=== PATIENT | female | born 1950 | race Caucasian/White ===

== ENCOUNTER 2016-12-22 08:34 | Inpatient (IN) | payer OTHER ==
[~2016-12-22] VITALS: Ht 162.6 cm; Wt 96.2 kg
--- NOTE | ~2016-12-22 | H ---
[facility] [place] [address] HISTORY AND PHYSICAL Name: ANGEL FERNANDEZ KAELA Room #: 416-P [facility] IN M.R.#: [id number] Admission: 01/29/17 Attend Phys: Best Rodgers MD Discharge: 02/01/17 Date of : 46 Report #: [id number] THIS REPORT FOR: //name// CC: Rk Rodgers CHIEF COMPLAINT: End-stage degenerative arthritis, left knee. HISTORY OF PRESENT ILLNESS: This heavy, but otherwise fit well appearing 65-year-old female presents with progressive left knee pain. She has had significant problems in both knees over the past several years, more severe on the left side than the right. We tried multiple conservative measures including anti-inflammatories and activity moderation and appropriate exercise and therapy with occasional knee injections. These have not resulted in significant symptom improvement. Her left knee remains quite symptomatic and she has elected to go ahead with left total knee arthroplasty. We have discussed this in my office on multiple occasions and she ultimately elected to go ahead with plans for hospital admission and surgery on January 29. I had at that time a history and physical in the chart, but this was actually few days longer than 30 days and so this is an updated and revised history and physical in regard to her hospital admission. We did discuss that she is slightly heavy with a BMI of 39 and would benefit from weight reduction. She notes she is making attempt with diet and exercise and has difficulty given her ongoing knee pain. PREVIOUS MEDICAL HISTORY: Notable for sleep apnea using a CPAP machine, hypertension and hypothyroidism. PREVIOUS SURGICAL HISTORY: Include carpal tunnel release, cataract surgery and previous knee arthroscopy. MEDICATIONS: Include meloxicam 7.5 mg daily, Synthroid 0.125 mg daily, aspirin 325 mg daily, fish oil 1000 mg daily, Toprol-XL once daily. MEDICAL ALLERGIES: PENICILLIN, SULFA, CIPRO. SOCIAL HISTORY: Tobacco: None. Alcohol: Minimal. FAMILY HISTORY: Noncontributory. REVIEW OF SYSTEMS: Notable for some chronic vision problems and chronic shortness of breath due to sleep apnea. The remainder of her review of systems is normal with exception of bilateral knee pain. PHYSICAL EXAMINATION: VITAL SIGNS: She is mildly heavy with height of 64 inches and weight 226 pounds. Her pulse is 86 and blood pressure 120/80. GENERAL: Her gait is antalgic on the left side, but she is not using any aids [address] [place] [address] HISTORY AND PHYSICAL Name: ANGEL FERNANDEZ [facility] Room #: 416-P [facility] IN ..#: [id number] Admission: 01/29/17 Attend Phys: Best Rodgers MD Discharge: 02/01/17 Date of : 46 Report #: [id number] or supports. SKIN: Warm and dry. LUNGS: Clear. CARDIOVASCULAR: Reveals a regular rate and rhythm without murmurs. ABDOMEN: Protuberant, soft, nontender. EXTREMITIES: The neck and back reveal normal contour and alignment, good range of motion without significant discomfort. The right lower extremity reveals good movement of the right hip without much pain. The right knee demonstrates slight varus malalignment and mild crepitus with a mild knee effusion and some discomfort consistent with degenerative change. The left lower extremity is much more uncomfortable at the knee, but demonstrates good range of motion of the hip. The left knee demonstrates slight varus malalignment and significant medial compartment crepitus and pain with varus and valgus stress. Her range of motion is limited to about 120 degrees of flexion and she lacks about degrees from full knee extension. X-rays of the left knee confirms moderate degenerative arthritis with spurring at all 3 compartments, greatest in the medial compartment related to mild varus malalignment. IMPRESSION: End-stage degenerative arthritis, left knee with mild varus malalignment. We discussed treatment options and elected to go ahead with left total knee arthroplasty. She and her understand well and appreciate the potential risks as well as benefits as we discussed previously. She will be admitted to the hospital on for left total knee arthroplasty and will probably be here for 3-4 days for postoperative rehabilitation and then discharged home for additional home therapy, then outpatient therapy as she progresses. By: [id number] Best Rodgers MD /nt
--- NOTE | ~2016-12-22 | D ---
[facility] [place] [address] DISCHARGE SUMMARY Name: ANGEL FERNANDEZ KAELA Room #: 416-P [facility] IN M.R.#: [id number] Admission: 01/29/17 Attend Phys: Best Rodgers MD Discharge: 02/01/17 Date of : 46 Report #: [id number] THIS REPORT FOR: //name// CC: Rk Rodgers DATE OF SERVICE: 02/01/2017 DATE OF ADMISSION: 01/29/2017 DATE OF DISCHARGE: 02/01/2017 FINAL DIAGNOSES: Degenerative arthritis, left knee. OPERATIONS AND PROCEDURES: Left total knee arthroplasty. HISTORY OF PRESENT ILLNESS: This heavy, but otherwise well appearing 66-year-old female presents with progressive bilateral knee pain, worse on the left side, we have elected to go ahead with total knee arthroplasty. HOSPITAL COURSE: The patient was admitted and taken to the operating room on 01/29/2017. She underwent left total knee arthroplasty which she tolerated well. Initially, her pain was well controlled with the femoral nerve block and oral pain medication. She did have some increased discomfort with time as she advanced activity and the block was decreased. She was, however, able to make good progress with therapy and seems to be safe with ambulation using a walker for protection. She was continued on her routine medications. She seems to be doing nicely on a regular diet. She has made good progress with therapy. DICTATION ENDS HERE <ELECTRONICALLY SIGNED> By: Best Rodgers MD 02/05/17 0753 0750 0811 Best Rodgers MD /nt
--- NOTE | ~2016-12-22 | EKG ---
[place] [address] [facility] [employer] [place] [address] ELECTROCARDIOGRAM REPORT Name: ANGEL FERNANDEZ Room #: PRE IN [facility]#: [id number] Admission: Attend Phys: Best Rodgers MD Discharge: Date of : 46 Report #: [id number] THIS REPORT FOR: //name// [facility] Test Date: 2017-01-10 Test Time: 12:06:00 Pat Name: ANGEL FERNANDEZ Department: Room: Gender: F [employer]: pretty jo : 1950 Requested By: Best Rodgers Order Number: [id number] MD: Favian Jordan Measurements Intervals Leander Rate: 62 P: 2 NV: 158 QRS: 44 QRSD: 94 T: 77 QT: 455 QTc: 462 Interpretive Statements Sinus rhythm Low voltage, precordial leads Nonspecific T wave abnormality Compared to ECG 12/14/1998 10:06:00 No significant change was found Electronically Signed On 01-11-2017 7:55:35 CDT by Favian Jordan [email or web address] <ELECTRONICALLY SIGNED> By: Favian Jordan MD, [facility] 01/11/17 0755 05 05 Favian Jordan MD, [facility] /EPI
--- NOTE | ~2016-12-22 | D ---
[facility] [place] [address] DISCHARGE SUMMARY Name: ANGEL FERNANDEZ KAELA Room #: 416-P [facility] IN M.R.#: [id number] Admission: 01/29/17 Attend Phys: Best Rodgers MD Discharge: 02/01/17 Date of : 46 Report #: [id number] THIS REPORT FOR: //name// CC: Rk Rodgers DATE OF SERVICE: 02/01/2017 FINAL DIAGNOSIS: End-stage degenerative arthritis, left knee. OPERATIONS AND PROCEDURES: Left total knee arthroplasty. HISTORY: This heavy, but otherwise well-appearing 66-year-old female presents with progressive bilateral knee pain, worse on the left than the right. She has tried conservative without much benefit and has therefore elected to go ahead with left total knee arthroplasty. HOSPITAL COURSE: The patient was admitted and taken to the operating room on 01/29/2017. She underwent left total knee arthroplasty which she tolerated well. Her pain was initially well controlled with oral analgesics and her femoral nerve block pain did increase somewhat as she increased activity and the nerve block was decreased. She still seems to be managing adequately with oral oxycodone and hydrocodone in an alternating fashion. She has resumed a regular diet and is tolerating that well. She is making progress with therapy and ambulating with a walker and assistance. She is otherwise feeling well. She seems to be safe and ready for discharge on 02/01/2017. DISCHARGE MEDICATIONS: Include Xarelto 10 mg daily, Lipitor 40 mg daily, metoprolol 50 mg daily, oxycodone 10/325 one half to one tablet q. 4h. p.r.n. for severe pain and hydrocodone 10/325 one half to one tablet q. 3-4 hours p.r.n. moderate pain. She will continue a regular diet at home. I have asked her to call me periodically to let me know of her progress. I have suggested continued use of elastic WESTON hose to help with lower extremity edema. She will continue with ambulation using a walker and assistance from family and visiting therapy. If she has problems or questions, I will plan to see her in my office next week. If she is doing well, we will plan to see her the following week for suture removal. <ELECTRONICALLY SIGNED> By: Best Rodgers MD 02/05/17 0753 0801 0814 Best Rodgers MD /nt
--- NOTE | ~2016-12-22 | O ---
[facility] [place] [address] OPERATIVE REPORT Name: ANGEL FERNANDEZ KAELA Room #: 416-P [facility] IN M.R.#: [id number] Admission: 01/29/17 Attend Phys: Best Rodgers MD Discharge: Date of : 46 Report #: [id number] THIS REPORT FOR: //name// CC: Rk Rodgers DATE OF SERVICE: 01/29/2017 DATE OF SERVICE: 01/29/2017. PREOPERATIVE DIAGNOSIS: End-stage degenerative arthritis, left knee. POSTOPERATIVE DIAGNOSIS: End-stage degenerative arthritis, left knee. PROCEDURE: Left total knee arthroplasty. SURGEON: Best Rodgers MD INDICATIONS: This healthy 66-year-old female presents with progressive left knee pain. Clinical evaluation and x-rays reveal moderately severe degenerative arthritis with loss of joint space and some periarticular spurring. She has tried conservative measures without much benefit. She has elected to go ahead with left total knee replacement at this time. DESCRIPTION OF PROCEDURE: The patient was taken to the operating room where she was placed under general anesthesia. A left femoral nerve block was also applied. The left leg was meticulously prepped and draped. Prophylactic intravenous antibiotics were administered. A thigh tourniquet was applied. The knee and leg were meticulously prepped and draped. An anterior longitudinal skin incision was made and carried through the medial retinaculum. The patella was reflected laterally. Moderately severe degenerative change in all 3 compartments was noted. The Coon and Nephew knee system was utilized. Intramedullary guides were used on both the femur and the tibia. The femur was cut in 5 degrees of valgus taking an additional 2 mm of bone to correct the mild preoperative flexion contracture. A size 5 left femoral component seemed to fit most appropriately. Good exposure was established at the tibia, and using an intramedullary guide, the proximal tibia was resected perpendicular to the long axis of the bone. The tibia seemed best suited for a size 4 tibial component. A patellar cutting guide was applied, and the patellar surface was resected. The patella seemed best suited for a size 32 mm patellar button. Trial components were inserted, and a trial reduction was performed testing several tibial inserts. An 11 mm insert resulted in full knee extension, but satisfactory stability and good knee flexion with also a good flexion gap and good stability and flexion. The trial component seemed to be well seated and in good position. Appropriate anchor holes were then created from both the femoral component and the tibial component. Gorham holes were also created for the [address] [address] OPERATIVE REPORT Name: ANGEL FERNANDEZ KAELA Room #: 416-P [facility] IN ..#: [id number] Admission: 01/29/17 Attend Phys: Best Rodgers MD Discharge: Date of : 46 Report #: [id number] patella. The intramedullary canal was blocked with a bone block on both the femur and the tibia. The surfaces were thoroughly irrigated and dried. Methyl methacrylate cement was mixed and injected into the porous surface of the proximal tibia. The Coon and Nephew size 4 left tibial component was then impacted into position and seated nicely and appeared to be secure. Excess cement was removed from around its margin. An 11 mm polyethylene insert was then snapped into place, seated nicely and appeared to be secure. A size 5 left noncemented press fit femoral component was then inserted. It was impacted on to the distal femur and seated nicely and appeared to be secure. A 32 mm patellar button was cemented into place using appropriate anchor holes and cement. The patella was secured with a patellar clamp until the cement had hardened. All excess cement was removed from around its margin. Once the cement was firm, alignment, range of motion and stability were once again assessed and felt to be satisfactory. The tourniquet was then deflated after a total tourniquet time of 65 minutes. A single Hemovac was left laterally through a separate stab incision. The fascia was closed with multiple #1 Vicryl sutures. The subcutaneous tissues were closed with 0 Monocryl. The skin was closed with skin akhil. A sterile dressing was applied. The patient was awakened and returned to the recovery room in good condition. <ELECTRONICALLY SIGNED> By: Best Rodgers MD 01/30/17 0759 1013 1049 Best Rodgers MD /nt
[2017-01-05] MEDS ORDERED: CYMBALTA60 MG PO (10:29)
[2017-01-05] MEDS ORDERED: AVALIDE 300-121 EACH PO (10:33)
[2017-01-05] MEDS ORDERED: LIPITOR40 MG PO (10:34)
[2017-01-05] MEDS ORDERED: PROTONIX40 M1 PO (10:34)
[2017-01-05] MEDS ORDERED: MOBIC7.5 MG PO (10:34)
[2017-01-05] MEDS ORDERED: SYNTHROID125 MCG PO (10:35)
[2017-01-05] MEDS ORDERED: TOPROL XL25 MG PO (10:35)
[2017-01-05] MEDS ORDERED: DETROL LA4 MG PO (10:36)
[2017-01-05] MEDS ORDERED: ASPIR 8181 M1 PO (10:36)
[2017-01-05] MEDS ORDERED: VITAMIN D-32000 UNIT PO (10:36)
[2017-01-05] MEDS ORDERED: ALEVE220 MG PO (10:37)
[2017-01-05] MEDS ORDERED: ESTROVEN 155 M155 MG PO (10:37)
[2017-01-10 12:14] LABS: HEMATOCRIT 39.5 % (37.0-47.0); HEMOGLOBIN 13.8 gm/dL (12.0-15.0); MCH 31.8 pg (26.0-34.0); MCHC 34.9 g/dL (28.0-37.0); MCV 91.1 fL (80.0-100.0); RBC 4.33 mil/uL (4.20-5.00); WBC 7.4 thou/uL (4.0-11.0)
[2017-01-10] MEDS ORDERED: DETROL1 MG PO (12:16)
[2017-01-10 12:22] LABS: ALBUMIN 4.2 g/dL (3.4-5.0); CALCIUM 9.6 mg/dL (8.5-10.1); POTASSIUM 4.2 mmol/L (3.5-5.1)
[2017-01-10 12:26] LABS: PROTIME 10.4 Seconds (9.3-11.4)
[2017-01-29] VITALS (10 sets, daily range): BP systolic 107–163; BP diastolic 64–107
[2017-01-30 00:21] VITALS: BP 101/63
[2017-01-30 04:29] VITALS: BP 110/69
[2017-01-30 06:21] LABS: HEMOGLOBIN 10.1 gm/dL (12.0-15.0); MCH 31.3 pg (26.0-34.0); MCHC 33.8 g/dL (28.0-37.0); MCV 92.6 fL (80.0-100.0); RBC 3.23 mil/uL (4.20-5.00); RDW 13.7 % (10.5-14.5); WBC 12.3 thou/uL (4.0-11.0)
[2017-01-30 07:50] VITALS: BP 116/63
[2017-01-30 20:28] VITALS: BP 107/72
[2017-01-31 05:25] VITALS: BP 102/64
[2017-01-31 07:56] LABS: HEMATOCRIT 28.3 % (37.0-47.0); HEMOGLOBIN 9.9 gm/dL (12.0-15.0); MCH 31.9 pg (26.0-34.0); MCHC 34.9 g/dL (28.0-37.0); MCV 91.2 fL (80.0-100.0); RBC 3.1 mil/uL (4.20-5.00); RDW 13.8 % (10.5-14.5); WBC 12.7 thou/uL (4.0-11.0)
[2017-01-31 08:00] VITALS: BP 107/63
[2017-01-31 08:45] VITALS: BP 107/63
[2017-01-31 16:15] VITALS: BP 132/72
[2017-01-31 20:28] VITALS: BP 119/78
[2017-02-01 04:45] VITALS: BP 127/81
[2017-02-01 06:08] LABS: HEMOGLOBIN 9.4 gm/dL (12.0-15.0); MCH 31.9 pg (26.0-34.0); MCHC 34.9 g/dL (28.0-37.0); MCV 91.5 fL (80.0-100.0); RBC 2.96 mil/uL (4.20-5.00); RDW 13.5 % (10.5-14.5)
[2017-02-01 08:50] VITALS: BP 139/83
[2017-02-01 11:23] VITALS: BP 139/83
[2017-02-01 12:23] VITALS: BP 139/83
== END 2017-02-01 13:45 | disposition home health service (06) | DRG 470 ==
LOC: PRE 08:34 → 4N 01-29 05:29 → TBA 01-29 05:29 → PRE 01-29 11:22 → 4N 01-29 11:46 → ENTRNSPT 02-01 11:53 → EDTRNSPTSTS 02-01 11:55 → EDTRNSPT 02-01 12:47 → 4N 02-01 13:45
PROVIDERS: Orthopaedic Surgery
PROC: 0SRD0J9 Replacement of Left Knee Joint with Synthetic Substitute, Cemented, Open Approach (ICD-10-PCS; principal; 2017-01-29)
DX: M17.12 Unilateral primary osteoarthritis, left knee (principal); I10 Essential (primary) hypertension; K21.9 Gastro-esophageal reflux disease without esophagitis; F32.9 Major depressive disorder, single episode, unspecified; E78.5 Hyperlipidemia, unspecified; E03.9 Hypothyroidism, unspecified; G47.30 Sleep apnea, unspecified; Z88.1 Allergy status to other antibiotic agents; Z88.2 Allergy status to sulfonamides; Z88.0 Allergy status to penicillin; Z88.8 Allergy status to other drugs, medicaments and biological substances; Z82.61 Family history of arthritis; Z82.49 Family history of ischemic heart disease and other diseases of the circulatory system; Z98.42 Cataract extraction status, left eye; Z98.41 Cataract extraction status, right eye; Z79.899 Other long term (current) drug therapy
CPT/HCPCS: 10790; 50010; 50101; 50415; 50954; 51130; 51225; 51412; 51771; 53000; 53364; 56525; 62110; 62900; 64041; 64043; 70005